=== PATIENT | female | born 1940 | race Caucasian/White ===

== ENCOUNTER 2017-12-08 12:07 | Emergency (ER) | payer OTHER ==
[~2017-12-08] VITALS: Ht 170.2 cm; Wt 76.7 kg
[2017-12-08 12:17] VITALS: BP_SYST 107
--- NOTE | 2017-12-08 12:19 | NUR ---
Placed in room 7 . Placed on monitoring and evaluation advisor, blood pressure machine and pulse oximeter. To gown for exam. Side rails up. Report given to Tamara.
--- NOTE | 2017-12-08 12:25 | NUR ---
ER Dr. Gerard at bedside examining patient.
[2017-12-08] MEDS ORDERED: GASTROGRAFIN 120 ML ONE (12:30)
--- NOTE | 2017-12-08 12:45 | NUR ---
Moustapha at bedside with pt. removed temporary young cath that pt arrived with, that was inserted to keep G-Tube open. inserted 18 F G-tube. Pt tolerated well, no signs of injury or distress. Will continue to monitor.
--- NOTE | 2017-12-08 12:55 | NUR ---
Radiology is in room with pt. Will continue to monitor.
[2017-12-08 13:00] LABS: BASOPHILS # (AUTO) 0.1 K/uL (0.0-0.2); EOSINOPHILS # (AUTO) 0.2 K/uL (0.0-0.4); EOSINOPHILS % (AUTO) 2.7 % (0.0-4.0); HEMATOCRIT 43.1 % (36-48); HEMOGLOBIN 14.4 g/dL (12.0-16.0); LYMPHOCYTES # (AUTO) 1.6 K/uL (1.0-5.5); LYMPHOCYTES % (AUTO) 27.7 % (20.5-51.5); MEAN CORPUSCULAR HEMOGLOBIN 30 pg (27-31); MEAN CORPUSCULAR HGB CONC 33 % (32-36); MEAN CORPUSCULAR VOLUME 90 fL (79.0-98.0); MONOCYTES # (AUTO) 0.5 K/uL (0.0-1.0); MONOCYTES % (AUTO) 9.2 % (1.7-9.3); NEUTROPHILS # (AUTO) 3.3 K/uL (1.8-7.7); NEUTROPHILS % (AUTO) 59.4 % (40.0-70.0); PLATELET COUNT (AUTO) 231 K/uL (130-430); RED BLOOD CELL COUNT(AUTO) 4.77 MIL/uL (4.2-6.2); RED CELL DISTRIBUTION WIDTH 14.5 % (9.0-15.0); WHITE BLOOD COUNT (AUTO) 5.7 K/uL (4.8-10.8)
[2017-12-08 13:08] LABS: ANION GAP 6 (5-15); CALCIUM 9.4 mg/dL (8.4-11.0); CHLORIDE 104 mmol/L (98-107); GLUCOSE 110 mg/dL (70-99); POTASSIUM 4.1 mmol/L (3.5-5.1); SODIUM SERUM 139 mmol/L (136-145); UREA NITROGEN, BLOOD 25 mg/dL (8-21)
[2017-12-08 13:11] LABS: INR 1.1 (0.8-1.2)
[2017-12-08 13:12] LABS: ALANINE AMINOTRANSFERASE 52 U/L (12-78); ALBUMIN 3.1 g/dL (3.4-4.8); ASPARTATE AMINOTRANSFERASE 33 U/L (10-37); TOTAL BILIRUBIN 0.4 mg/dL (0.0-1.0)
--- NOTE | 2017-12-08 14:05 | NUR ---
Vital signs stable. No sings of injury or acute distress. Will continue to monitor.
--- NOTE | 2017-12-08 15:15 | NUR ---
Pt resting in bed comfortably with no signs of complaint or distress. Vital signs stable.
--- NOTE | 2017-12-08 16:33 | NUR ---
Patient given written and verbal discharge instructions and verbalizes understanding. ER MD discussed with patient the results and treatment provided. Patient in stable condition. ID arm band removed. Patient educated on pain management and to follow up with PMD. Pain Scale 0-10. Opportunity for questions provided and answered. Medication side effect fact sheet provided.
--- NOTE | 2017-12-08 16:34 | NUR ---
Report - Rosalio Called [facility] and spoke to Julien mayberry. Informed Juilen that new 18 F G-tube was placed.
--- NOTE | 2017-12-08 16:34 | NUR ---
Pt will be transported via BLS with the company [employer]. Pt gowned in [employer] transportation gown.
[2017-12-08 16:40] VITALS: BP_SYST 112
== END 2017-12-08 16:40 | disposition home or self-care (01) ==
LOC: SED 12:07
DX: Z43.1 Encounter for attention to gastrostomy (principal); I10 Essential (primary) hypertension; J44.9 Chronic obstructive pulmonary disease, unspecified
CPT/HCPCS: 36415; 43760; 74240; 80053; 85025; 85610; 85730; 99285; Q9963